=== PATIENT | female | born 1980 | race Caucasian/White ===

== ENCOUNTER 2023-01-13 14:32 | Emergency (ER) | payer OTHER ==
[~2023-01-13] VITALS: Ht 157.5 cm; Wt 59.0 kg
[2023-01-13 14:42] VITALS: BP_SYST 118
[2023-01-13] MEDS ORDERED: LIDOCAINE 1% 10 MG/ML, 20 ML MDV INJ ONE (15:00)
[2023-01-13] MEDS ORDERED: DIPHTH,PERTUSS(ACELL),TET VAC 0.5 ML VIAL (Tdap) I.M. ONE (15:00)
[2023-01-13] MEDS ORDERED: BACITRACIN 1 GM OINT TP ONE (15:40)
[2023-01-13] MEDS ORDERED: CEPH250C PO (15:43)
[2023-01-13] MEDS ORDERED: cephALEXin 500 MG CAPSULE PO ONE (15:45)
[2023-01-13 16:04] VITALS: BP_SYST 124
== END 2023-01-13 16:00 | disposition home or self-care (01) ==
LOC: SED 14:32
DX: S61.412A Laceration without foreign body of left hand, initial encounter (principal); Z79.899 Other long term (current) drug therapy; W29.0XXA Contact with powered kitchen appliance, initial encounter; Y93.89 Activity, other specified; Y92.89 Other specified places as the place of occurrence of the external cause; Y99.8 Other external cause status
CPT/HCPCS: 13132; 99283; 90715; J2001